=== PATIENT | female | born 1950 | race Caucasian/White ===

== ENCOUNTER → 2017-05-20 | Outpatient (CLI) | payer OTHER ==
[~2017-05-20] MED LIST: ARM1 PO; CETI10TA84 PO; CLTP PO; DICL1GEL12 TOP; DVN80125 PO; GABA1CAP PO; METO25TA3 PO; MOME50SP5 NAE; OMEG1CAP71 PO; PANT40TA PO; RIVA1.5T PO; SIMV10TA2 PO
[2017-05-20 14:28] LABS: ALT/SGPT 49 U/L (12-78); BLOOD UREA NITROGEN 25 mg/dl (7-18); BUN/CREATININE RATIO 19.4 (10-20); CALCIUM 9.9 mg/dl (8.5-10.1); CARBON DIOXIDE 29 mmol/L (21-32); CHLORIDE 104 mmol/L (98-107); CHOLESTEROL 159 mg/dl (0-200); GLUCOSE 106 mg/dl (70-99); POTASSIUM 4.1 mmol/L (3.5-5.1); SODIUM 139 mmol/L (136-145); TRIGLYCERIDES 161 mg/dl (0-150); VERY LOW DENSITY LIPOPROT CALC 32 mg/dl
[2017-05-20 14:39] LABS: ALB/GLOB RATIO 1.1 (0.9-2); ALKALINE PHOSPHATASE 83 U/L (45-117); AST/SGOT 29 U/L (15-37); CHOLESTEROL/HDL RATIO 3.2; HDL CHOLESTEROL 50 mg/dl; LDL CHOLESTEROL CALCULATED 77 mg/dl
== END | disposition home or self-care (01) ==
LOC: C.LABBC 09:47
PROVIDERS: ATTEND Internal Medicine Geriatric Medicine
DX: I10 Essential (primary) hypertension (principal); E78.5 Hyperlipidemia, unspecified; M19.90 Unspecified osteoarthritis, unspecified site; I48.0 Paroxysmal atrial fibrillation; M54.16 Radiculopathy, lumbar region

== ENCOUNTER → 2017-07-02 | Outpatient (CLI) | payer OTHER ==
[2017-07-02 12:51] LABS: BLOOD UREA NITROGEN 21 mg/dl (7-18); BUN/CREATININE RATIO 17.5 (10-20); CALCIUM 9.6 mg/dl (8.5-10.1); CARBON DIOXIDE 29 mmol/L (21-32); CHLORIDE 103 mmol/L (98-107); GLUCOSE 107 mg/dl (70-99); POTASSIUM 4.3 mmol/L (3.5-5.1); SODIUM 140 mmol/L (136-145)
== END | disposition home or self-care (01) ==
LOC: C.LAB 09:56
PROVIDERS: ATTEND Internal Medicine Geriatric Medicine
DX: E78.5 Hyperlipidemia, unspecified (principal); N18.9 Chronic kidney disease, unspecified

== ENCOUNTER → 2017-10-18 | Outpatient (CLI) | payer OTHER ==
--- NOTE | 2017-10-18 13:13 | DIAGNOSTIC IMAGING REPORT ---
ABD/PELVIS ORAL CONT ONLY CT DOSE: 552.85 mGy.cm HISTORY: Pain nausea TECHNIQUE: Multiaxial CT images of the abdomen and pelvis were performed following the use of oral contrast. A dose lowering technique was utilized adhering to the principles of ALARA. COMPARISON STUDY: 06/13/2014 FINDINGS: Lung bases are clear. Liver spleen and pancreas are unremarkable. Moderate wall edema of the stomach raising possibility of gastritis. Gallbladder is negative for distention. Kidneys negative for hydronephrosis. Spleen is uniform. Bowel pattern overall is nonobstructive. There are scattered several scattered colonic and to a somewhat greater extent sigmoid diverticuli. There is no evidence for acute diverticulitis. The appendix is normal. Bowel pattern is nonobstructive. Bladder is midline. IMPRESSION: 1. Wall thickening of the stomach raising the possibility of gastritis . 2. Nonobstructive bowel pattern. 3. Normal appendix. 4. Chronic colonic diverticulosis. The above report was generated using voice recognition software. It may contain grammatical, syntax or spelling errors. Electronically signed by: Edouard Stern M.D. 10/18/2017 1:12 PM Dictated Date/Time: 10/18/2017 12:54 PM
== END | disposition home or self-care (01) ==
LOC: C.CTS 12:36
PROVIDERS: ATTEND Physician Assistant Medical
DX: R11.2 Nausea with vomiting, unspecified (principal); R19.7 Diarrhea, unspecified; R10.9 Unspecified abdominal pain; K57.30 Diverticulosis of large intestine without perforation or abscess without bleeding

== ENCOUNTER → 2017-11-01 | Day surgery (SDC) | payer OTHER ==
[2017-10-22 08:22] VITALS: Ht 157.5 cm; Wt 77.3 kg
[~2017-11-01] VITALS: Ht 157.5 cm; Wt 77.3 kg
[~2017-11-01] MED LIST changes: -ARM1 PO; +CALC600T9 PO; +CHOL1000 PO; -CLTP PO; -DICL1GEL12 TOP; +GABA-112 PO; -GABA1CAP PO; +LIDOCAINE HCL 2% 2 ML VIAL (20MG/ML) ONE; +MECL-81 PO; +MEPE1TAB PO; -MOME50SP5 NAE; +MOME6000 NAE; +ONDA4TAB46 PO; +OXYC1CAP5 PO; +PROPOFOL IV EMULSION 10 MG/ML 20 ML VIAL IV ONE; +SODIUM CHLORIDE 0.9% 500ML 500 ML IV ONE; +[UNRECOGNIZED DRUG - OTHER] EXT
[2017-11-01 14:13] VITALS: TEMP 36.6
--- NOTE | 2017-11-01 14:45 | Endo History and Physical ---
History & Physical Date of Service: Nov 01, 2017. Chief Complaint: ABNORMAL CT SCAN Referring Physician: Denisse SAHU History of Present Illness 67 yo CF who presents for EGD and Colonoscopy secondary to abnormal CT Scan. Past Surgical History Hx Cardiac Surgery: No Hx Internal Defibrillator: No Hx Pacemaker: No Hx Abdominal Surgery: Yes (D&C X3; LAPAROSCOPY; TUBAL LIGATION) Hx of Implantable Prosthesis: No Hx Post-Op Nausea and Vomiting: Yes (PONV) Hx Cancer Surgery: Yes (RIGHT BREAST LUMPECTOMY W/ SENTINAL NODE BIOPSY) Hx Thoracic Surgery: No Hx Orthopedic: No Hx Urinary Tract Surgery: No Family History Colon CA Social History Smoking Status: Never Smoker Hx Substance Use: No Hx Alcohol Use: No (RARELY) Allergies Coded Allergies: Acetaminophen (Verified Allergy, Severe, HIVES; TONGUE SWELLS; LIPS/HEAD ITCHY, 11/01/17) Scopolamine (Verified Allergy, Severe, HIVES; RASH; TONGUE; LIPS/HEAD ITHCY, 11/01/17) Tramadol (Verified Allergy, Severe, SHORTNESS OF BREATH; HALLUCINATIONS, 11/01/17) Adhesives (Verified Allergy, Unknown, REDNESS AND A RASH-OK WITH LATEX, ) Hydrocodone (Verified Allergy, Unknown, ITCHING AROUND MOUTH, 11/01/17) Oxycodone (Verified Allergy, Unknown, ITCHING OF MOUTH, RASH, 11/01/17) Current Medications Reported Home Medications Medications Dose Route/Sig Max Daily Dose Days Date Category Dose Instructions Toprol-Xl (Metoprolol Succinate) 25 Mg Tabcr 25 Mg PO DAILY 11/01/17 Reported [Cascabel] 1 Dose EXT BID 10/22/17 Reported APPLYING TO ARTHRITIC BODY PARTS Zyrtec (Cetirizine HCl) 10 Mg Tab 10 Mg PO DAILY PRN 10/22/17 Reported Xarelto (Rivaroxaban) 15 Mg Tab 15 Mg PO QPM 10/22/17 Reported Vitamin D3 (Cholecalciferol) 1,000 Unit Tab 1 Tab PO DAILY 10/22/17 Reported Diovan Hct (Valsartan/Hctz) 1 Tab Tab 1 Tab PO QAM 10/22/17 Reported Oxycodone Hcl 5 Mg Cap 1 Cap PO QID PRN 30 10/22/17 Reported Zofran (Ondansetron HCl) 4 Mg Tab 4 Mg PO BID PRN 10/22/17 Reported [place] 3-6-9 Complex ([place]erson 3 Fatty Acids-Paterson 6 Fa) 1 Cap Cap 1 Cap PO BID 10/22/17 Reported Mometasone Furoate (Mometasone Furoate (Nasal)) 50 Mcg/Act Spr 1 [place] GRADY BID 10/22/17 Reported Demerol (Meperidine HCl) 50 Mg Tab 50 Mg PO DAILY PRN 10/22/17 Reported Neurontin (Gabapentin) 100 Mg Cap 100 Mg PO BID 10/22/17 Reported 1 TAB IN AM 2 TAB IN PM [facility] Motion Sickness II (Meclizine HCl) 25 Mg Tab 1 Tab PO TID PRN 10/22/17 Reported Calcium + D (Calcium Carbonate-Vitamin D) 1 Tab Tab 1 Tab PO BID 10/22/17 Reported Protonix (Pantoprazole Sodium) 40 Mg Tab 40 Mg PO QAM 04/10/16 Reported Zocor (Simvastatin) 10 Mg Tab 10 Mg PO QPM 09/05/10 Reported Vital Signs Weight (Kilograms): 77.27 Height (Feet): 5 Height (Inches): 2 Date Time Temp Pulse Resp B/P (MAP) Pulse Ox O2 Delivery O2 Flow Rate FiO2 11/01/17 14:13 36.6 87 18 151/69 (96) 93 Room Air Physical Exam General Appearance: WD/WN, no apparent distress Respiratory/Chest: Auscultation: breath sounds normal Cardiovascular: Heart Auscultation: RRR Abdomen: Bowel Sounds: normal Inspection & Palpation: soft, non-distended, no tenderness, guarding & rebound Assessment and Plan Assessment: 67 yo CF who presents for EGD and Colonoscopy secondary to abnormal CT Scan. Plan: Proceed with EGD and colonoscopy.
--- NOTE | 2017-11-01 15:57 | GI REPORT ---
Procedure Date: 11/01/2017 3:00 PM Procedure: Colonoscopy Indications: Abnormal CT of the GI tract Medicines: Monitored Anesthesia Care Complications: No immediate complications. Estimated Blood Loss: Estimated blood loss: none. Procedure: Pre-Anesthesia Assessment: - Prior to the procedure, a History and Physical was performed, and patient medications and allergies were reviewed. The patient's tolerance of previous anesthesia was also reviewed. The risks and benefits of the procedure and the sedation options and risks were discussed with the patient. All questions were answered, and informed consent was obtained. Prior Anticoagulants: The patient has taken Xarelto (rivaroxaban), last dose was 3 days prior to procedure. ASA Grade Assessment: III - A patient with severe systemic disease. After reviewing the risks and benefits, the patient was deemed in satisfactory condition to undergo the procedure. After I obtained informed consent, the scope was passed under direct vision. Throughout the procedure, the patient's blood pressure, pulse, and oxygen saturations were monitored continuously. The scope was introduced through the anus and advanced to the cecum, identified by appendiceal orifice and ileocecal valve. The colonoscopy was performed without difficulty. The patient tolerated the procedure well. The quality of the bowel preparation was good. The ileocecal valve, appendiceal orifice, and rectum were photographed. Findings: The perianal and digital rectal examinations were normal. Scattered small-mouthed diverticula were found in the entire colon. Non-bleeding internal hemorrhoids were found during retroflexion. The hemorrhoids were small. Impression: - Diverticulosis in the entire examined colon. - Non-bleeding internal hemorrhoids. - No specimens collected. Recommendation: - Resume previous diet. - Continue present medications. - Repeat colonoscopy for surveillance based on pathology results. - Return to primary care physician as previously scheduled. Desean Murray DO 11/01/2017 3:56:45 PM This report has been signed electronically. Note Initiated On: 11/01/2017 3:00 PM I attest to the content of the Intraoperative Record and orders documented therein, exceptions below
--- NOTE | 2017-11-01 15:59 | GI REPORT ---
Procedure Date: 11/01/2017 3:00 PM Procedure: Upper GI endoscopy Indications: Abnormal CT of the GI tract Medicines: Monitored Anesthesia Care Complications: No immediate complications. Estimated Blood Loss: Estimated blood loss: none. Procedure: Pre-Anesthesia Assessment: - Prior to the procedure, a History and Physical was performed, and patient medications and allergies were reviewed. The patient's tolerance of previous anesthesia was also reviewed. The risks and benefits of the procedure and the sedation options and risks were discussed with the patient. All questions were answered, and informed consent was obtained. Prior Anticoagulants: The patient has taken Xarelto (rivaroxaban), last dose was 3 days prior to procedure. ASA Grade Assessment: III - A patient with severe systemic disease. After reviewing the risks and benefits, the patient was deemed in satisfactory condition to undergo the procedure. After obtaining informed consent, the endoscope was passed under direct vision. Throughout the procedure, the patient's blood pressure, pulse, and oxygen saturations were monitored continuously. The scope was introduced through the mouth, and advanced to the second part of duodenum. The upper GI endoscopy was accomplished without difficulty. The patient tolerated the procedure well. Findings: The esophagus was normal. A small hiatus hernia was present. Localized mild inflammation characterized by erythema was found in the gastric antrum. Biopsies were taken with a cold forceps for histology. The examined duodenum was normal. Impression: - Normal esophagus. - Small hiatus hernia. - Gastritis. Biopsied. - Normal examined duodenum. Recommendation: - Resume previous diet. - Continue present medications. - Await pathology results. - Return to primary care physician as previously scheduled. Desean Murray, DO 11/01/2017 3:58:20 PM This report has been signed electronically. Note Initiated On: 11/01/2017 3:00 PM I attest to the content of the Intraoperative Record and orders documented therein, exceptions below
--- NOTE | 2017-11-01 16:01 | Discharge Instructions ---
Endoscopy Patient Instructions Date / Procedure(s) Performed Nov 01, 2017. Colonoscopy, EGD Allergy Information Coded Allergies: Acetaminophen (Verified Allergy, Severe, HIVES; TONGUE SWELLS; LIPS/HEAD ITCHY, 11/01/17) Scopolamine (Verified Allergy, Severe, HIVES; RASH; TONGUE; LIPS/HEAD ITHCY, 11/01/17) Tramadol (Verified Allergy, Severe, SHORTNESS OF BREATH; HALLUCINATIONS, 11/01/17) Adhesives (Verified Allergy, Unknown, REDNESS AND A RASH-OK WITH LATEX, ) Hydrocodone (Verified Allergy, Unknown, ITCHING AROUND MOUTH, 11/01/17) Oxycodone (Verified Allergy, Unknown, ITCHING OF MOUTH, RASH, 11/01/17) Discharge Date / Findings Nov 01, 2017. EGD: Gastritis with biopsies, Hiatal hernia Colonoscopy: Diverticulosis, Internal hemorrhoids Medication Instructions Stopped Medication(s): XARELTO 15MG LAST DOSE 10/29/17 OK to resume all medications today as prescribed Reported Home Medications Medications Dose Route/Sig Max Daily Dose Days Date Category Dose Instructions Toprol-Xl (Metoprolol Succinate) 25 Mg Tabcr 25 Mg PO DAILY 11/01/17 Reported [Cascabel] 1 Dose EXT BID 10/22/17 Reported APPLYING TO ARTHRITIC BODY PARTS Zyrtec (Cetirizine HCl) 10 Mg Tab 10 Mg PO DAILY PRN 10/22/17 Reported Xarelto (Rivaroxaban) 15 Mg Tab 15 Mg PO QPM 10/22/17 Reported Vitamin D3 (Cholecalciferol) 1,000 Unit Tab 1 Tab PO DAILY 10/22/17 Reported Diovan Hct (Valsartan/Hctz) 1 Tab Tab 1 Tab PO QAM 10/22/17 Reported Oxycodone Hcl 5 Mg Cap 1 Cap PO QID PRN 30 10/22/17 Reported Zofran (Ondansetron HCl) 4 Mg Tab 4 Mg PO BID PRN 10/22/17 Reported Penrose 3-6-9 Complex (Penrose 3 Fatty Acids-Penrose 6 Fa) 1 Cap Cap 1 Cap PO BID 10/22/17 Reported Mometasone Furoate (Mometasone Furoate (Nasal)) 50 Mcg/Act Spr 1 [place] GRADY BID 10/22/17 Reported Demerol (Meperidine HCl) 50 Mg Tab 50 Mg PO DAILY PRN 10/22/17 Reported Neurontin (Gabapentin) 100 Mg Cap 100 Mg PO BID 10/22/17 Reported 1 TAB IN AM 2 TAB IN PM [facility] Motion Sickness II (Meclizine HCl) 25 Mg Tab 1 Tab PO TID PRN 10/22/17 Reported Calcium + D (Calcium Carbonate-Vitamin D) 1 Tab Tab 1 Tab PO BID 10/22/17 Reported Protonix (Pantoprazole Sodium) 40 Mg Tab 40 Mg PO QAM 04/10/16 Reported Zocor (Simvastatin) 10 Mg Tab 10 Mg PO QPM 09/05/10 Reported Provider Instructions Activity Restrictions - No exercising or heavy lifting for 24 hours. - Do not drink alcohol the day of the procedure. - Do not drive a car or operate machinery until the day after the procedure. - Do not make any important decisions or sign important papers in 24 hours after the procedure. Following Day: - Return to full activity which may include returning to work/school. Diet Start your diet with liquids and light foods (jello, soup, juice, toast). Then eat your usual diet if not nauseated. Treatment For Common After Affects For mild abdominal pain, bloating, or excessive gas: - Rest - Eat lightly - Lie on right side Follow-Up Information Follow-up with Denisse SAHU as scheduled Anesthesia Information What You Should Know You have had a procedure that required some medicine to reduce anxiety and discomfort. This treatment is called moderate sedation. After receiving the treatment, you may be sleepy, but you will be able to breathe on your own. The effects of the treatment may last for several hours. Follow these instructions along with Activity/Diet recommendations noted above: * Do NOT do anything where dizziness or clumsiness would be dangerous. * Rest quietly at home today, then you can be up and about tomorrow. * Have a responsible person stay with you the rest of today. * You may have had an I.V. today. If so, you may take the dressing off later today. Recommendations Call your doctor if: * Trouble breathing * Continuous vomiting for more than 24 hours * Temperature above 101 degrees * Severe abdominal pain or bloating * Pain not relieved by pain medicine ordered * There is increased drainage or redness from any incision * A large amount of rectal bleeding greater than 2-3 tablespoons. (If you had a polyp/s removed or have hemorrhoids, a small amount of blood - from the rectum is to be expected.) * You have any unanswered questions or concerns. IN THE EVENT OF A SERIOUS EMERGENCY, GO TO THE NEAREST EMERGENCY ROOM Your discharge instructions were prepared by provider Desean Murray. Patient Instructions Signature Page Cally Abel Patient (or Guardian) Signature/Date: I have read and understand the instructions given to me by my caregivers. Caregiver/RN/Doctor Signature/Date: The above-named patient and/or guardian has received patient instructions on this date. + Original Patient Signature Page (only) stays with chart. Please make copy for patient.
[2017-11-01 16:15] VITALS: BP 143/72; PULSE 62; O2SAT 97
--- NOTE | 2017-11-01 16:44 | Anesthesiology Progress Note ---
Anesthesia Post Op Note Date & Time Nov 01, 2017 at 16:43 Vital Signs Pain Intensity: 4 Vital Signs Past 12 Hours Date Time Temp Pulse Resp B/P (MAP) Pulse Ox O2 Delivery O2 Flow Rate FiO2 11/01/17 16:15 62 18 143/72 (95) 97 Room Air 11/01/17 16:00 62 18 136/66 (89) 98 Room Air 11/01/17 15:45 74 18 123/66 (85) 97 Room Air 11/01/17 14:13 36.6 87 18 151/69 (96) 93 Room Air Notes Mental Status: alert / awake / arousable, participated in evaluation Pt Amnestic to Procedure: Yes Nausea / Vomiting: adequately controlled Pain: adequately controlled Airway Patency, RR, SpO2: stable & adequate BP & HR: stable & adequate Hydration State: stable & adequate Anesthetic Complications: no major complications apparent
== END | disposition home or self-care (01) ==
LOC: C.GI 13:34
PROVIDERS: ATTEND Internal Medicine
DX: K29.50 Unspecified chronic gastritis without bleeding (principal); K44.9 Diaphragmatic hernia without obstruction or gangrene; K57.30 Diverticulosis of large intestine without perforation or abscess without bleeding; K64.8 Other hemorrhoids; Z80.0 Family history of malignant neoplasm of digestive organs; Z79.899 Other long term (current) drug therapy

== ENCOUNTER → 2018-04-12 | Outpatient (CLI) | payer OTHER ==
[~2018-04-12] MED LIST changes: -LIDOCAINE HCL 2% 2 ML VIAL (20MG/ML) ONE; -PROPOFOL IV EMULSION 10 MG/ML 20 ML VIAL IV ONE; -SODIUM CHLORIDE 0.9% 500ML 500 ML IV ONE
[2018-04-12 16:31] LABS: BASO % 1.1 %; BASO ABS # 0.09 K/uL (0-0.2); EOS % 4.1 %; EOS ABS # 0.33 K/uL (0-0.5); HEMATOCRIT 41.1 % (37-47); HEMOGLOBIN 13.9 g/dL (12.0-16.0); IG# 0.02 K/uL (0.00-0.02); LYMPH % 35.7 %; LYMPH ABS # 2.89 K/uL (1.2-3.4); MEAN CELL VOLUME 92.2 fL (80-100); MEAN CORPUSCULAR HEMOGLOBIN 31.2 pg (25-34); MEAN CORPUSCULAR HGB CONC 33.8 g/dl (32-36); MEAN PLATELET VOLUME 10.7 fL (7.4-10.4); MONO % 6.3 %; MONO ABS # 0.51 K/uL (0.11-0.59); NEUT % 52.6 %; NEUT ABS # 4.25 K/uL (1.4-6.5); PLATELET COUNT 255 K/uL (130-400); RED CELL DISTRIBUTION WIDTH SD 43.5 fL (36.4-46.3); WHITE BLOOD COUNT 8.09 K/uL (4.8-10.8)
[2018-04-12 17:09] LABS: ALBUMIN 3.5 gm/dl (3.4-5.0); ALKALINE PHOSPHATASE 81 U/L (45-117); ALT/SGPT 33 U/L (12-78); AST/SGOT 24 U/L (15-37); BLOOD UREA NITROGEN 22 mg/dl (7-18); CALCIUM 8.7 mg/dl (8.5-10.1); CARBON DIOXIDE 29 mmol/L (21-32); CHOLESTEROL 170 mg/dl (0-200); CREATININE 1.27 mg/dl (0.60-1.20); GLUCOSE 108 mg/dl (70-99); LDL CHOLESTEROL CALCULATED 78 mg/dl; POTASSIUM 3.8 mmol/L (3.5-5.1); SODIUM 140 mmol/L (136-145); TOTAL PROTEIN 7.5 gm/dl (6.4-8.2)
== END | disposition home or self-care (01) ==
LOC: C.LAB 15:38
PROVIDERS: ATTEND Internal Medicine Geriatric Medicine
DX: I12.9 Hypertensive chronic kidney disease with stage 1 through stage 4 chronic kidney disease, or unspecified chronic kidney disease (principal); E78.5 Hyperlipidemia, unspecified; M19.90 Unspecified osteoarthritis, unspecified site; R31.29 Other microscopic hematuria; I48.0 Paroxysmal atrial fibrillation; N18.9 Chronic kidney disease, unspecified

== ENCOUNTER → 2018-04-14 | Outpatient (CLI) | payer OTHER | END | disposition home or self-care (01) | LOC: C.LAB 17:56 | PROVIDERS: ATTEND Internal Medicine Geriatric Medicine | DX: R31.29 Other microscopic hematuria (principal) ==